=== PATIENT | male | born 1995 | race African-American/Black ===

== ENCOUNTER 2025-03-15 14:16 | Emergency (ER) | payer OTHER ==
[~2025-03-15] VITALS: Ht 165.1 cm; Wt 64.0 kg
[2025-03-15 14:28] VITALS: BP 140/105; TEMP 98.6; O2SAT 100
== END 2025-03-15 17:09 | disposition left against medical advice (07) ==
LOC: M ED 14:16
DX: Z53.21 Procedure and treatment not carried out due to patient leaving prior to being seen by health care provider (principal)